=== PATIENT | female | born 1990 | race Caucasian/White ===

== ENCOUNTER 2017-03-24 19:29 | Emergency (ER) | payer OTHER ==
[2017-03-24] MEDS ORDERED: ONDANSETRON 4 MG INJ IV (21:47)
[2017-03-24] MEDS: ACETAMINOPHEN 325 MG TAB PO (22:17)
[2017-03-24] MEDS: IBUPROFEN 600 MG TAB PO (22:17)
[2017-03-24] MEDS: METOCLOPRAMIDE 10 MG INJ IV (22:17)
[2017-03-24] MEDS: SOD CHLORIDE 0.9% 1,000 ML IV (22:17)
[2017-03-24 22:42] LABS: ADD MAN DIFF? NO
[2017-03-24 22:44] LABS: BASOPHIL # 0.1 10^3/ul (0.0-0.1); BASOPHILS % 0.8 % (0.0-2.0); EOSINOPHILS # 0.1 10^3/ul (0.0-0.5); EOSINOPHILS % 1.8 % (0.0-7.0); HEMATOCRIT 43.2 % (37.0-47.0); HEMOGLOBIN 14.6 g/dl (12.0-16.0); LYMPHOCYTES # 1.1 10^3/ul (0.8-2.9); LYMPHOCYTES % 16.6 % (15.0-51.0); MEAN CORPUSCULAR HGB CONC 33.8 g/dl (32.0-37.0); MEAN CORPUSCULAR VOLUME 88.9 fl (82.0-101.0); MEAN PLATELET VOLUME 12.2 fl (7.4-10.4); MONOCYTE # 0.9 10^3/ul (0.3-0.9); MONOCYTES % 13.2 % (0.0-11.0); NEUTROPHIL # 4.4 10^3/ul (1.6-7.5); NEUTROPHILS % 67.1 % (39.0-77.0); PLATELET COUNT 242 10^3/UL (140-415); RED BLOOD COUNT 4.86 10^6/ul (4.20-5.40); RED CELL DISTRIBUTION WIDTH 12.4 % (11.5-14.5)
[2017-03-24 22:44] LABS: WHITE BLOOD COUNT 6.5 10^3/ul (4.8-10.8)
[2017-03-24 22:48] LABS: ADD UMIC YES; UR ASCORBIC ACID NEGATIVE (NEGATIVE); UR BILIRUBIN (Dip) NEGATIVE (NEGATIVE); UR BLOOD (Dip) 1+ mg/dL (NEGATIVE); UR CLARITY CLEAR (CLEAR); UR COLOR STRAW (YELLOW); UR GLUCOSE (Dip) NEGATIVE (NEGATIVE); UR KETONES (Dip) NEGATIVE (NEGATIVE); UR LEUKOCYTE ESTERASE (Dip) NEGATIVE Leu/ul (NEGATIVE); UR NITRITE (Dip) NEGATIVE (NEGATIVE); UR RBC 0 /HPF (0-5); UR SPECIFIC GRAVITY (Dip) 1.009 (1.003-1.030); UR TOTAL PROTEIN (Dip) NEGATIVE (NEGATIVE); UR UROBILINOGEN (Dip) NEGATIVE (NEGATIVE); UR WBC 1 /HPF (0-5)
[2017-03-24 23:04] LABS: ALANINE AMINOTRANSFERASE 45 IU/L (13-69); ALBUMIN 5.2 g/dl (3.3-4.9); ALBUMIN/GLOBULIN RATIO 1.57; ALKALINE PHOSPHATASE 118 IU/L (42-121); ANION GAP 20 (8-16); ASPARTATE AMINO TRANSFERASE 33 IU/L (15-46); BILIRUBIN,INDIRECT 0.6 mg/dl (0-1.1); BILIRUBIN,TOTAL 0.6 mg/dl (0.2-1.3); BLOOD UREA NITROGEN 18 mg/dl (7-20); CALCIUM 9.4 mg/dl (8.4-10.2); CARBON DIOXIDE 27 mmol/L (21-31); CHLORIDE 100 mmol/L (97-110); CREATININE 0.75 mg/dl (0.44-1.00); GLUCOSE 89 mg/dl (70-220); LIPASE 213 U/L (23-300); POTASSIUM 3.5 mmol/L (3.5-5.1); SODIUM 143 mmol/L (135-144); TOTAL PROTEIN 8.5 g/dl (6.1-8.1)
== END 2017-03-25 02:09 | disposition home or self-care (01) ==
LOC: FTE 03-25 02:09
DX: R10.84 Generalized abdominal pain (principal)
CPT/HCPCS: 36415; 71045; 74176; 76705; 80053; 81001; 83690; 85025; 96374; 99285-25

== ENCOUNTER 2017-03-25 11:09 | Emergency (ER) | payer OTHER | END 2017-03-25 14:16 | disposition left against medical advice (07) | LOC: FTE 11:09 | DX: Z53.21 Procedure and treatment not carried out due to patient leaving prior to being seen by health care provider (principal) ==

== ENCOUNTER 2018-01-08 06:40 | Day surgery (SDC) | payer OTHER ==
[2018-01-08] MEDS ORDERED: CEFAZOLIN 1 GM INJ (07:00)
[2018-01-08] MEDS ORDERED: LIDOCAINE 2% (SDV) 5 ML INJ (08:44)
[2018-01-08] MEDS ORDERED: PROPOFOL 20 ML (08:44)
[2018-01-08] MEDS ORDERED: ROCURONIUM 50 MG INJ (08:44)
[2018-01-08] MEDS ORDERED: NEOSTIGMINE 3 MG/3 ML SYRINGE (08:44)
[2018-01-08] MEDS ORDERED: GLYCOPYRROLATE 0.4 MG INJ (08:44)
[2018-01-08] MEDS ORDERED: MIDAZOLAM 1 MG/ML 2 ML INJ (08:45)
[2018-01-08] MEDS ORDERED: FENTAnyl 50 MCG/ML VIAL (08:45)
[2018-01-08] MEDS ORDERED: ONDANSETRON 4 MG INJ (08:45)
[2018-01-08] MEDS ORDERED: DEXAMETHASONE 4 MG/ML 1 ML INJ (08:45)
[2018-01-08] MEDS ORDERED: SUCCINYLCHOLINE CHLORIDE 100 MG/5 ML SYG IV (08:46)
[2018-01-08] MEDS ORDERED: hydrALAzine 20 MG INJ IV (09:00)
[2018-01-08] MEDS ORDERED: LABETALOL HCL 20MG INJ IV (09:00)
[2018-01-08] MEDS ORDERED: ATROPINE 1 MG/10 ML SYRINGE IV (09:00)
[2018-01-08] MEDS ORDERED: EPHEDrine SULFATE 50 MG/5 ML SYG IV (09:00)
[2018-01-08] MEDS ORDERED: FENTAnyl 50 MCG/ML VIAL IV (09:00)
[2018-01-08] MEDS ORDERED: morphine (1 MG/ML) 10ML SYRINGE IV ×3 (09:00)
[2018-01-08] MEDS ORDERED: MIDAZOLAM 1 MG/ML 2 ML INJ IV (09:00)
[2018-01-08] MEDS ORDERED: HYDROmorphONE 1 MG/5 ML IV SYRINGE IV (09:00)
[2018-01-08] MEDS ORDERED: DIPHENHYDRAMINE 50 MG INJ IV (09:00)
[2018-01-08] MEDS ORDERED: OXYCODONE/ACETAMINOPHEN (5/325) TAB PO ×2 (09:00)
[2018-01-08] MEDS: BUPIVACAINE 0.25%/EPI (SDV) 30 ML INJ (09:28)
[2018-01-08] MEDS: POLYMYXIN/BACITRACIN 1L IRRIG (09:28)
[2018-01-08] MEDS ORDERED: IBUPROFEN 600 MG TAB PO (10:00)
[2018-01-08] MEDS ORDERED: ONDANSETRON 4 MG INJ IV (10:00)
[2018-01-08] MEDS ORDERED: morphine 2 MG INJ IV (10:00)
[2018-01-08] MEDS: KETOROLAC 30 MG INJ IV (10:06)
[2018-01-08] MEDS: HYDROmorphONE 1 MG/5 ML IV SYRINGE IV ×2 (10:06→10:12)
[2018-01-08] MEDS: MEPERIDINE 25 MG INJ IV (10:23)
[2018-01-08] MEDS: ONDANSETRON 4 MG INJ IV (10:24)
[2018-01-08] MEDS: FENTAnyl 50 MCG/ML VIAL IV (10:51)
== END 2018-01-08 11:45 | disposition home or self-care (01) ==
LOC: SDS 06:40
DX: K42.9 Umbilical hernia without obstruction or gangrene (principal)
CPT/HCPCS: 49585; 88302